=== PATIENT | female | born 1955 | race Caucasian/White ===

== ENCOUNTER 2022-07-06 11:12 | Observation (INO) ==
[2022-07-06 12:00] LABS: Basophils % 0.3 % (0.0-0.8); Eosinophils % 0.1 % (0.00-10.9); Hematocrit 42.6 VOL% (35.7-47.0); Hemoglobin 13.7 GM/DL (12.0-16.0); Immature Granulocytes % 0.9 %; Immature Granulocytes Absolute 0.09 #; Lymphocytes # 1.2 10*3/uL (1.4-4.0); Lymphocytes % 12.1 % (21.3-54.2); Mean Corpuscular HGB Conc 32.2 GM/DL (32-36); Mean Corpuscular Volume 92.6 FL (87-102); Mean Platelet Volume 9.5 FL (9.6-12.0); Monocytes # 0.7 10*3/uL (0.11-0.8); Monocytes % 6.3 % (1.7-12.7); Neutrophils % 80.3 % (38.7-73.9); Platelet Count 273 T/CUMM (130-400); Red Cell Distribution Width 14.3 % (9.3-17.3); White Blood Count 10.3 T/CUMM (4-12)
[2022-07-06] MEDS ORDERED: DILTIAZEM INJ 100 MG in SODIUM CHLORIDE 0.9% 100 ML IV SCH (12:00)
[2022-07-06] MEDS ORDERED: DILTIAZEM 25 MG/5 ML VIAL IV STA (12:03)
[2022-07-06 12:30] LABS: Albumin 3.3 G/DL (3.4-5.0); Bilirubin,Total 0.5 MG/DL (0.20-1.00); Calcium 9.3 MG/DL (8.5-10.1); Osmolality,Calculated 276.7 MOS/KG (273-304); Potassium 3.6 MMOL/L (3.5-5.1); Thyroid Stimulating Hormone 1.19 uIU/ml (0.358-3.74); Total Protein 7.4 G/DL (6.4-8.2)
[2022-07-06] MEDS ORDERED: ONDANSETRON 4 MG/2 ML VIAL IV PRN (13:01)
[2022-07-06] MEDS ORDERED: ACETAMINOPHEN 325 MG TABLET PO PRN (13:01)
[2022-07-06] MEDS ORDERED: DOCUSATE SODIUM 100 MG CAPSULE PO PRN (13:01)
[2022-07-06] MEDS ORDERED: traZODone 50 MG TABLET PO PRN ×2 (13:01→13:54)
[2022-07-06 13:10] LABS: INR 1.1; PT Patient Result 11.6 SECS (10.1-12.1); Partial Thromboplastin Time 30.3 SECS (23.7-32.9)
[2022-07-06] MEDS ORDERED: APIXABAN 5 MG TABLET PO SCH (13:30)
[2022-07-06] MEDS: methylPREDNISolone SOD SUC 40 MG/1 ML VIAL IV SCH (14:30)
[2022-07-06] MEDS: OSELTAMIVIR 75 MG CAPSULE PO SCH ×2 (14:31→20:36)
[2022-07-06] MEDS ORDERED: DILTIAZEM CD 120 MG CAPSULE PO STA (14:36)
[2022-07-06] MEDS: METOPROLOL TARTRATE 25 MG TABLET PO SCH ×2 (15:01→20:37)
[2022-07-06] MEDS: GABAPENTIN 300 MG CAPSULE PO SCH ×2 (15:01→20:37)
[2022-07-06] MEDS: ENOXAPARIN 100 MG/ML SYRINGE SUBCUT SCH (15:12)
[2022-07-06 17:17] LABS: Bilirubin,Urine Negative (Negative); Blood, Urine Trace mg/dL (Negative); Glucose,Urine (UA) Negative (Negative); Ketones,Urine Negative (Negative); Nitrite,Urine Negative (Negative); Protein,Urine Negative (Negative); Urine Appearance Clear (Clear); Urine Color Yellow (Yellow); Urine Urobilinogen 0.2 eU/dL (<2.0)
[2022-07-06 17:20] LABS: Bacteria,Urine Occasional /HPF (Few); Mucus,Urine Occasional /LPF (Occasional); RBC,Urine 9 /HPF (0-4); Squamous Epithelial Cell,Urine Occasional /HPF (0-10)
[2022-07-06 17:29] LABS: Barbiturates Screen,Urine Negative (Negative); Benzodiazepines Screen,Urine Negative (Negative); Cannabinoid Screen,Urine Negative (Negative); Opiate Screen,Urine Positive (Negative); Phencyclidine Screen,Urine Negative (Negative)
[2022-07-06] MEDS: POTASSIUM CHLORIDE 20 MEQ TABLET PO SCH (18:00)
[2022-07-06] MEDS: ALBUTEROL/IPRATROPIUM 3 ML NEB RESP TX SCH (20:04)
[2022-07-06] MEDS: MAGNESIUM OXIDE 400 MG TABLET PO SCH (20:36)
[2022-07-06] MEDS: NON-FORMULARY MEDICATION (Budesonide-Glycopyr-Formoterol [Breztri Aerosphere] 160-9-4.8 mc INH SCH (20:39)
[2022-07-06] MEDS ORDERED: DILTIAZEM CD 120 MG CAPSULE PO SCH (21:00)
[2022-07-07] MEDS: methylPREDNISolone SOD SUC 40 MG/1 ML VIAL IV SCH ×2 (01:21→15:42)
[2022-07-07] MEDS: ALBUTEROL/IPRATROPIUM 3 ML NEB RESP TX SCH ×4 (02:04→19:12)
[2022-07-07] MEDS: ENOXAPARIN 100 MG/ML SYRINGE SUBCUT SCH ×2 (02:28→15:41)
[2022-07-07 04:27] LABS: Basophils % 0.2 % (0.0-0.8); Hematocrit 38.2 VOL% (35.7-47.0); Hemoglobin 12.3 GM/DL (12.0-16.0); Immature Granulocytes % 0.9 %; Immature Granulocytes Absolute 0.05 #; Lymphocytes # 0.7 10*3/uL (1.4-4.0); Lymphocytes % 11.6 % (21.3-54.2); Mean Corpuscular HGB Conc 32.2 GM/DL (32-36); Mean Corpuscular Volume 92.9 FL (87-102); Mean Platelet Volume 9.8 FL (9.6-12.0); Monocytes # 0.1 10*3/uL (0.11-0.8); Monocytes % 2.4 % (1.7-12.7); Neutrophils % 84.9 % (38.7-73.9); Platelet Count 251 T/CUMM (130-400); Red Blood Count 4.11 MC/CUMM (3.8-5.5); White Blood Count 5.9 T/CUMM (4-12)
[2022-07-07 05:04] LABS: Calcium 8.9 MG/DL (8.5-10.1); Osmolality,Calculated 281.7 MOS/KG (273-304); Potassium 3.8 MMOL/L (3.5-5.1); Risk Ratio 2.34; VLDL Cholesterol 12.2 MG/DL
[2022-07-07] MEDS: CITALOPRAM 40 MG TABLET PO SCH (08:50)
[2022-07-07] MEDS: POTASSIUM CHLORIDE 20 MEQ TABLET PO SCH ×2 (08:50→17:44)
[2022-07-07] MEDS: DILTIAZEM CD 240 MG CAPSULE PO SCH (08:50)
[2022-07-07] MEDS: OSELTAMIVIR 75 MG CAPSULE PO SCH ×2 (08:50→20:37)
[2022-07-07] MEDS: ATORVASTATIN 20 MG TABLET PO SCH (08:50)
[2022-07-07] MEDS: GABAPENTIN 300 MG CAPSULE PO SCH ×3 (08:51→20:37)
[2022-07-07] MEDS: MAGNESIUM OXIDE 400 MG TABLET PO SCH ×2 (08:51→20:37)
[2022-07-07] MEDS: METOPROLOL TARTRATE 50 MG TABLET PO SCH ×2 (08:51→20:37)
[2022-07-07] MEDS: PANTOPRAZOLE 40 MG TABLET PO SCH (08:51)
[2022-07-07] MEDS: NON-FORMULARY MEDICATION (Budesonide-Glycopyr-Formoterol [Breztri Aerosphere] 160-9-4.8 mc INH SCH ×2 (08:54→20:38)
[2022-07-07] MEDS ORDERED: MELOXICAM 7.5 MG TABLET PO SCH (09:00)
[2022-07-08] MEDS: ALBUTEROL/IPRATROPIUM 3 ML NEB RESP TX SCH ×3 (01:14→12:10)
[2022-07-08] MEDS: methylPREDNISolone SOD SUC 40 MG/1 ML VIAL IV SCH ×2 (01:57→15:30)
[2022-07-08] MEDS: ENOXAPARIN 100 MG/ML SYRINGE SUBCUT SCH ×2 (02:00→15:33)
[2022-07-08] MEDS: NON-FORMULARY MEDICATION (Budesonide-Glycopyr-Formoterol [Breztri Aerosphere] 160-9-4.8 mc INH SCH (09:45)
[2022-07-08] MEDS: DILTIAZEM CD 240 MG CAPSULE PO SCH (09:47)
[2022-07-08] MEDS: GABAPENTIN 300 MG CAPSULE PO SCH ×2 (09:47→15:30)
[2022-07-08] MEDS: OSELTAMIVIR 75 MG CAPSULE PO SCH (09:48)
[2022-07-08] MEDS: METOPROLOL TARTRATE 50 MG TABLET PO SCH (09:48)
[2022-07-08] MEDS: PANTOPRAZOLE 40 MG TABLET PO SCH (09:48)
[2022-07-08] MEDS: ATORVASTATIN 20 MG TABLET PO SCH (09:48)
[2022-07-08] MEDS: CITALOPRAM 40 MG TABLET PO SCH (09:48)
[2022-07-08] MEDS: POTASSIUM CHLORIDE 20 MEQ TABLET PO SCH (09:48)
[2022-07-08] MEDS: MAGNESIUM OXIDE 400 MG TABLET PO SCH (09:49)
[2022-07-08 16:03] VITALS: BP 148/80
== END 2022-07-08 17:20 | disposition home or self-care (01) ==
LOC: SUATTDRO → N.ED 11:12 → N.EDINP 11:12 → SUATTDRO 12:57 → N.TELEN 19:15
PROVIDERS: ADMIT Internal Medicine; ATTEND Internal Medicine